=== PATIENT | female | born 1995 | race Caucasian/White ===

== ENCOUNTER 2018-12-11 09:43 | Emergency (ER) | payer BC ==
--- NOTE | 2018-12-11 09:57 | ER Report ---
History and Physical Time Seen By MD: 09:53 Hx. of Stated Complaint: patient reports facial droop on the left side since 0900. Also reports numbness to the left arm at 0900 but that has resolved HPI/ROS CHIEF COMPLAINT: Left arm numb, dizzy, panicked, and asymmetry left face chest is a.m. HISTORY OF PRESENT ILLNESS: 23-year-old female notes that she awoke this morning and went in and started laundry and then she went in to take a shower. She started getting dizzy so she laid down for several seconds and stated that her left arm went numb and she was not moving it. Patient has a history of migraines, vasovagal syncope's, and panic attacks. Patient stated that a week ago she was cutting boxes up using her right hand because she is right-handed and she had numbness at the end of her thumb. She stated "I argue researched or googled this so my arm went numb and looked at my face and the mere" she noted her smile was asymmetric and this panicked her. Patient had the numbness and tingling until 945 which is just before she came in. She had the throat tightening as well as the inability to speak during her panic. At this time she noted her left arm was not working and when she got up to she described OCS or face was asymmetric. Cold I was really panic and I was just crying and I couldn't talk." Patient is not working today. She denies drugs or alcohol. Her last menstrual period was 4 days ago and it was negative she is on control pills. She had just a little bit of Gatorade this morning. Discussion: Sounds of the patient was concerned or anxious about the numbness in her right thumb from a week. So much so that she had been researching it and googling it and as she said she knew what to look for. When she got dizzy she looked in the mirror to see if her face is asymmetric to see if she was having a stroke and then she said she had this panic. She denies nausea vomiting or diarrhea. She denies cough. She denies migraine headache symptoms which is not uncommon for her nor does she have any visual symptoms or problems. She has not had any fevers aches or chills. REVIEW OF SYSTEMS: Gen.: Patient is so anxious to his throat still feels tight and she says that her voice is not returned to bring her voice as of yet. HEENT: Tongue midline arrest extrusion. No decreased sensation to the forehead cheeks jaw or down her neck. PERRLA EOMI. No nystagmus. Patient's pucker and grimace of facial muscles are normal. Her smile is symmetric. Her forehead muscles are normal. Patient still feels the tightness in her throat and she says this is changed her voice. She feels like there is a lump and it is hard to swallow past. Respiratory: No cough, no dyspnea. Denies feeling short of breath except for during the biggest part of her panic Cardiovascular: No chest pain, no palpitations. Gastrointestinal: No vomiting, no abdominal pain. Musculoskeletal: Neurologic: Dizziness, facial asymmetry, numbness and tingling has all gone away. Patient still feels a lump in her throat. No visual problems Allergies: Coded Allergies: No Known Drug Allergies (Unverified , 12/11/18) Past Medical/Surgical History Patient has a history of migraines, syncopal episodes, anxiety episodes. Reviewed Nurses Notes: Yes Smoking Status: Unknown if Ever Smoked Hx Substance Use Disorder: No Constitutional Vital Sign - Last 24 Hours 12/11/18 09:48 Temp 97.9 Pulse 84 Resp 18 B/P (MAP) 139/104 Pulse Ox 96 O2 Delivery Room Air Physical Exam Gen.: Well-developed well-nourished the patient is anxious and nervous appea ring. HEENT: Tongue midline arrest extrusion. No decreased sensation to the forehead cheeks jaw or down her neck. PERRLA EOMI. No nystagmus. Patient's pucker and grimace of facial muscles are normal. Her smile is symmetric. Her forehead muscles are normal. Patient still feels the tightness in her throat and she says this is changed her voice. She feels like there is a lump and it is hard to swallow past. Negative nystagmus. No diplopia Lungs: Clear to auscultation next line heart: Without else murmurs or rubs rate and rhythm equal and symmetric radial pulsations. Cor: Without gas murmurs or rubs rate and rhythm: Abdomen bowel sounds soft and benign. Extremities no edema cyanosis or clubbing. No numbness or tingling at this point from shoulders elbows wrists fingers. Equal symmetric nutritional health coach strength. Good rapid alternating movements. Muscle skeletal: Normal range of motion unremarkable. Neuro: Oriented 3 and alert. Cranial nerves II through XII grossly intact. Good facial grimace. Normal oral pucker. Normal smile. Normal rise with the forehead muscles. No decreased sensation anywhere on the face at this time. No arm drift. No nystagmus. Patient feels lump in her throat and she states the voice that is a little gravelly at this time is not her own. Patient notes that she is really panicky and that she was crying. Medical Decision Making Data Points Result Diagram: 12/11/18 0957 12/11/18 0957 Laboratory Hematology Test 12/11/18 09:57 White Blood Count 5.0 k/uL (4.5-11.0) Red Blood Count 4.80 M/uL (4.17-5.56) Hemoglobin 15.5 g/dL (12.0-16.0) Hematocrit 45.5 % (34.0-47.0) Mean Corpuscular Volume 95.0 fL (80.0-96.0) Mean Corpuscular Hemoglobin 32.4 pg (26.0-33.0) Mean Corpuscular Hemoglobin Concent 34.1 g/dL (32.0-36.0) Red Cell Distribution Width 12.8 % (11.5-14.5) Platelet Count 305 K/uL (150-450) Mean Platelet Volume 8.9 fL (7.2-11.1) Neutrophils (%) (Auto) 47.3 % (39.4-72.5) Lymphocytes (%) (Auto) 45.7 % (17.6-49.6) Monocytes (%) (Auto) 5.1 % (4.1-12.4) Eosinophils (%) (Auto) 1.0 % (0.4-6.7) Basophils (%) (Auto) 0.9 % (0.3-1.4) Nucleated RBC Relative Count (auto) 0.1 /100WBC Neutrophils # (Auto) 2.4 K/uL (2.0-7.4) Lymphocytes # (Auto) 2.3 K/uL (1.3-3.6) Monocytes # (Auto) 0.3 K/uL (0.3-1.0) Eosinophils # (Auto) 0.1 K/uL (0.0-0.5) Basophils # (Auto) 0.0 K/uL (0.0-0.1) Nucleated RBC Absolute Count (auto) 0.00 K/uL Chemistry Test 12/11/18 09:57 Sodium Level 142 mmol/L (137-145) Potassium Level 4.0 mmol/L (3.5-5.0) Chloride Level 106 mmol/L (98-107) Carbon Dioxide Level 24 mmol/L (22-31) Blood Urea Nitrogen 13 mg/dl (7-18) Creatinine 0.90 mg/dl (0.52-1.04) Glomerular Filtration Rate Calc > 60.0 Random Glucose 97 mg/dl (75-110) Calcium Level 9.5 mg/dl (8.4-10.2) Total Bilirubin 0.4 mg/dl (0.2-1.3) Aspartate Amino Transf (AST/SGOT) 32 U/L (0-35) Alanine Aminotransferase (ALT/SGPT) 18 U/L (0-56) Alkaline Phosphatase 60 U/L (0-126) Total Protein 8.2 g/dl (6.3-8.2) Albumin 4.7 g/dl (3.5-5.0) EKG/Imaging EKG Interpretation EKG was normal sinus rhythm and mild sinus arrhythmia. Monitor Interpretation: Normal Sinus Rhythm Imaging CT noncontrast head impression: Unremarkable brain. No acute intracranial process or cause for symptoms. ED Course/Re-evaluation ED Course Patient is ordered to the emergency room and a history was done and the CT head noncontrast was done rapidly. Labs were done and an EKG was done. Labs were all essentially normal. EKG was normal. CT the head is normal. Patient did have a panic attack. Stroke was ruled out. Neurologic from [facility] policy also considered. Patient is on control but she is a nonsmoker. Decision to Disposition Date: Dec 11, 2018 Decision to Disposition Time: 11:31 Depart Departure Latest Vital Signs Vital Signs Date Time Temp Pulse Resp B/P (MAP) Pulse Ox O2 Delivery O2 Flow Rate FiO2 12/11/18 09:48 97.9 84 18 139/104 96 Room Air Impression: Primary Impression: Anxiety attack Condition: Improved Disposition: HOME OR SELF-CARE Patient Instructions: Panic Attack (ED) Additional Instructions: Work always on taking care of these areas: Diet-make sure you're not skipping meals or doing energy drinks. Also make sure you're getting plenty of hydration. Exercise-into a habit of exercise daily even if it is just walking. 10,000 steps today is a good place to start. Sleep-8 hours a day and give good-quality sleep. Stress-discover things that help relieve stress such as yoga or louise chi. Everything from meditation and different hobbies also help this area. J CARLOS FORD MD Dec 11, 2018 09:57
--- NOTE | 2018-12-11 10:21 | RADIOLOGY IMAGING REPORT ---
FACILITY: [facility] - [place] PATIENT NAME: Nu Gomez : 1995 MR: [id number] V: [id number] EXAM DATE: ORDERING PHYSICIAN: J CARLOS FORD TECHNOLOGIST: Location: [facility] - [place] Patient: Nu Gomez : 1995 Visit/Account:[id number] Date of Sevice: 12/11/2018 CT BRAIN NO CONTRAST COMPARISON: None. HISTORY: facial droop. TECHNIQUE: Noncontrast axial CT brain with coronal and sagittal reformats. One of the following dose optimization techniques was utilized in the performance of this exam: automated exposure control; a djustment of the mA and/or kV according to patient size; or use of iterative reconstruction technique . Specific details can be referenced in the facility's radiology CT exam operational policy. CONTRAST: None. CT BRAIN FINDINGS: CSF SPACES: Ventricles, cisterns, and sulci are appropriate for age. No hydrocephalus, extra-axial hemorrhage, or mass. No midline shift. CEREBRUM: No edema, hemorrhage, mass, acute infarction, or significant atrophy. Normal morphology a nd density. CEREBELLUM: No edema, hemorrhage, mass, acute infarction, or significant atrophy. Tonsils are not l ow-lying. BRAINSTEM: No edema, hemorrhage, mass, acute infarction, or significant atrophy. Normal morphology and density. CALVARIUM: No mass or other significant visible lesion. Mastoid air cells are normally pneumatized. SINUSES: Limited views demonstrate no significant mucosal thickening or fluid. ORBITS: Limited views are unremarkable. OTHER: Negative. IMPRESSION: Unremarkable brain. No acute intracranial process or cause for symptoms. Report Dictated By: Kwasi Joe at 12/11/2018 10:11 AM Report E-Signed By: Kwasi Joe at 12/11/2018 10:13 AM WSN:[id number]
[2018-12-11 10:44] LABS: PLATELET COUNT, AUTOMATED 305 K/uL (150-450)
[2018-12-11 12:16] VITALS: BP 128/72
--- NOTE | 2018-12-11 13:28 | EKG ---
FACILITY: [facility] PATIENT NAME: ALEJO POSADA : [id number] MR: [id number] V: [id number] EXAM DATE: ORDERING PHYSICIAN: J CARLOS FORD TECHNOLOGIST: Test Reason : Blood Pressure : / mmHG Vent. Rate : 064 BPM Atrial Rate : 064 BPM P-R Int : 136 ms QRS Dur : 094 ms QT Int : 432 ms P-R-T Axes : -08 066 021 degrees QTc Int : 445 ms Sinus arrhythmia Nonspecific isolated biphasic T wave in V3 U waves are present No previous ECGs available Confirmed by ABHIJEET MARY ([id number]) on 12/11/2018 1:32:28 PM Referred By: Confirmed By:ABHIJEET MARY
== END 2018-12-11 12:17 | disposition home or self-care (01) ==
LOC: ER 10:12
DX: F41.0 Panic disorder [episodic paroxysmal anxiety] (principal)
CPT/HCPCS: 70450; 82040; 82247; 82310; 82374; 82435; 82565; 82947; 84075; 84132; 84155; 84295; 84450; 84460; 84520; 85025; 93005; 99284

== ENCOUNTER → 2018-12-23 | Outpatient (CLI) | payer BC ==
[~2018-12-23] MED LIST: GADOBENATE 529MG/1ML 15ML VIAL IVP ONE
--- NOTE | 2018-12-23 14:19 | RADIOLOGY IMAGING REPORT ---
FACILITY: [facility] - [place] PATIENT NAME: Nu Gomez : 1995 MR: [id number] V: [id number] EXAM DATE: ORDERING PHYSICIAN: ANNALEE PARRY TECHNOLOGIST: Location: [facility] Patient: Nu oGmez : 1995 Visit/Account:[id number] Date of Sevice: 12/23/2018 EXAMINATION: MRI brain without IV contrast MRI brain with IV contrast HISTORY: Stroke like symptoms, headache and dizziness, numbness and tingling of both left extremity 2 weeks ago COMPARISON: CT scan 12/11/2018 TECHNIQUE: Multi-planar, multi-sequence brain MRI was performed before and after IV gadolinium. CONTRAST: 11 mL of IV MultiHance FINDINGS: There is diffusion restriction with associated T2 bright signal on FLAIR in the right centrum semiova le. There is subtle associated enhancement. No other significant parenchymal signal abnormality. No other abnormal enhancement. Ventricles and sulci are grossly symmetric and within normal limits. No evidence of intracranial hemo rrhage or space-occupying mass. No abnormal susceptibility. Sagittal midline structures: Normal. Ventricles: Normal. Masses/edema: None. Extra-axial: None. Calvarium/scalp: Negative. Skull base: Negative. Visualized sinuses/orbits: Negative. Visualized upper neck: Negative. IMPRESSION: 1. 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 Otherwise unremarkable MRI of the b rain. Findings were discussed with Gertrude Tipton MA in the referring physician's office, at 2:10 PM on 12/23/2018. Report Dictated By: LINDSAY PULLIAM at 12/23/2018 1:52 PM Report E-Signed By: LINDSAY PULLIAM at 12/23/2018 2:11 PM WSN:[id number]
== END ==
LOC: MRI 02:12
PROVIDERS: ATTEND Nurse Practitioner Family
DX: R42 Dizziness and giddiness (principal); Z86.69 Personal history of other diseases of the nervous system and sense organs; Q67.0 Congenital facial asymmetry; R20.0 Anesthesia of skin; R20.2 Paresthesia of skin; I63.89 Other cerebral infarction
CPT/HCPCS: 70553; A9577

== ENCOUNTER → 2018-12-30 | Outpatient (CLI) | payer BC ==
[~2018-12-30] MED LIST changes: -GADOBENATE 529MG/1ML 15ML VIAL IVP ONE; +IOPAMIDOL 76% 100 ML INFUS BTL 100 ML ONE; +NS(*) 0.9% 50 ML BAG 50 ML ONE
--- NOTE | 2018-12-30 10:41 | RADIOLOGY IMAGING REPORT ---
FACILITY: [facility] [place] PATIENT NAME: Nu Gomez : 1995 MR: [id number] V: [id number] EXAM DATE: ORDERING PHYSICIAN: RAMYA KRISHNA TECHNOLOGIST: Location: [facility] Patient: Nu Gomez : 1995 Visit/Account:[id number] Date of Sevice: 12/30/2018 EXAMINATION: CT head and neck angiogram HISTORY: CVA TECHNIQUE: CT head and neck angiogram was performed following the iv injection 75 mL Isovue-370. Sag ittal and coronal MPR and coronal and axial MIPS reformats generated. Stenosis of the internal caroti d arteries calculated using NASCET criteria. One of the following dose optimization techniques was utilized in the performance of this exam: autom ated exposure control; adjustment of the mA and/or kV according to patient size; or use of iterative reconstruction technique. Specific details can be referenced in the facility's radiology CT exam ope rational policy. COMPARISON: Brain MR December 23, 2018 FINDINGS: Angiogram: Aortic arch and great vessels: Conventional anatomy. Normal. Cervical Right CCA / ICA: Normal. Cervical Left CCA / ICA: Normal. Vertebro-basilar: Normal. Internal carotid arteries from the skull base through cavernous carotid arteries: Normal. CONSUELO circulation: Normal. MCA circulation: Normal. SENIOR PARALEGAL circulation: Normal. PICA/AICA/superior cerebellar arteries: Normal. Venous sinuses and peripheral intracranial vasculature: Normal. Intracranial structures: Normal. Neck soft tissues: Normal. Upper chest: Normal. Head and neck osseous structures: No acute finding. IMPRESSION: Normal head and neck arterial vasculature without arterial stenosis, thrombosis, aneurysm or dissecti on. Report Dictated By: Westley Lovett MD at 12/30/2018 10:19 AM Report E-Signed By: Westley Lovett MD at 12/30/2018 10:31 AM WSN:[id number]
--- NOTE | 2018-12-30 10:42 | RADIOLOGY IMAGING REPORT ---
[place] [facility] [place]IENT NAME: Nu Gomez : 1995 MR: [id number] V: [id number] EXAM DATE: ORDERING PHYSICIAN: RAMYA KRISHNA TECHNOLOGIST: Location: [facility] - [place] Patient: Nu Gomez : 1995 Visit/Account:[id number] Date of Sevice: 12/30/2018 EXAMINATION: CT head and neck angiogram HISTORY: CVA TECHNIQUE: CT head and neck angiogram was performed following the iv injection 75 mL Isovue-370. Sag ittal and coronal MPR and coronal and axial MIPS reformats generated. Stenosis of the internal caroti d arteries calculated using NASCET criteria. One of the following dose optimization techniques was utilized in the performance of this exam: autom ated exposure control; adjustment of the mA and/or kV according to patient size; or use of iterative reconstruction technique. Specific details can be referenced in the facility's radiology CT exam ope rational policy. COMPARISON: Brain MR December 23, 2018 FINDINGS: Angiogram: Aortic arch and great vessels: Conventional anatomy. Normal. Cervical Right CCA / ICA: Normal. Cervical Left CCA / ICA: Normal. Vertebro-basilar: Normal. Internal carotid arteries from the skull base through cavernous carotid arteries: Normal. CONSUELO circulation: Normal. MCA circulation: Normal. PROFESSOR OF CHEMICAL ENGINEERING circulation: Normal. PICA/AICA/superior cerebellar arteries: Normal. Venous sinuses and peripheral intracranial vasculature: Normal. Intracranial structures: Normal. Neck soft tissues: Normal. Upper chest: Normal. Head and neck osseous structures: No acute finding. IMPRESSION: Normal head and neck arterial vasculature without arterial stenosis, thrombosis, aneurysm or dissecti on. Report Dictated By: Westley Lovett MD at 12/30/2018 10:19 AM Report E-Signed By: Westley Lovett MD at 12/30/2018 10:31 AM WSN:[id number]
== END ==
LOC: CT 04:01
PROVIDERS: ATTEND Clinical Nurse Specialist Neuroscience
DX: I63.9 Cerebral infarction, unspecified (principal)
CPT/HCPCS: 70496; 70498; J7050; Q9967